=== PATIENT | female | born 2000 | race Caucasian/White ===

== ENCOUNTER 2021-08-28 14:05 | Emergency (ER) | payer OTHER ==
[~2021-08-28] VITALS: Ht 157.5 cm; Wt 89.5 kg
--- NOTE | 2021-08-28 15:29 | RAD ---
Exam: XR KNEE _4 VIEWS WITH PATELLA_LT History: Pain. Comparison: None. Findings: Osseous mineralization is normal. No acute fracture or dislocaton. No significant degenerative change s. Mild suprapatellar effusion. No focal soft tissue swelling. Impression: 1. Mild effusion without acute osseous abnormality of the left knee. Electronically signed by: Pino Jensen MD (08/28/2021 3:27 PM) [id number]
[2021-08-28] MEDS ORDERED: METH4TAB2 PO (15:59)
[2021-08-28] MEDS ORDERED: NAPR-514 PO (15:59)
[2021-08-28] MEDS ORDERED: HYDR-2761 PO (15:59)
--- NOTE | 2021-08-28 16:01 | PHYS DOC ---
Past Medical History Past Surgical History: No Surgical History General Adult EDM: Chief Complaint: LOWER EXT PAIN HPI: HPI: Patient is a 21 year old female who presents the ED today complaining of a sharp intermittent 10 out of 10 left knee pain, symptoms began today when she stepped on a stair case. Patient states the pain is worse on weightbearing. She has history of chronic osteoarthritis of the left knee. Reports the Nba wrap on the left knee relieves some of the pain. She states she has an appointment with a staff midwife in November. Review of Systems: Review of Systems: Constitutional: Denies fever or chills. [] Musculoskeletal: Reports left knee pain Integument: Denies rash. [] Neurologic: Denies headache, focal weakness or sensory changes. [] Psychiatric: Denies depression or anxiety. [] Heart Score: C/O Chest Pain: N/A Risk Factors: Risk Factors: DM, Current or recent (<one month) smoker, HTN, HLP, family history of CAD, obesity. Risk Scores: Score 0 - 3: 2.5% MACE over next 6 weeks - Discharge Home Score 4 - 6: 20.3% MACE over next 6 weeks - Admit for Clinical Observation Score 7 - 10: 72.7% MACE over next 6 weeks - Early Invasive Strategies Allergies: Allergies: Allergies Coded Allergies Type Severity Reaction Last Updated Verified No Known Drug Allergies 08/28/21 No Physical Exam: PE: Constitutional: Well developed, well nourished, no acute distress, non-toxic appearance. [] Skin: Warm, dry, no erythema, no rash. [] Back: No tenderness, no CVA tenderness. [] Extremities: Left knee with no obvious deformity, soft tissue swelling noted diffusely throughout the knee. Tenderness diffusely throughout the knee, full range of motion to the left knee, negative Karine sign, negative Jody sign, negative posterior anterior drawer sign. +2 left pedal pulse. Cap refill less than 2 seconds the left lower extremity. Sensation intact to the left lower extremity Neurologic: Alert and oriented X 3, normal motor function, normal sensory function, no focal deficits noted. [] Psychologic: Affect normal, judgement normal, mood normal. [] Current Patient Data: Vital Signs: Vital Signs Date Time Temp Pulse Resp B/P (MAP) Pulse Ox O2 Delivery O2 Flow Rate FiO2 08/28/21 14:05 98.5 90 18 112/67 (82) 98 Room Air 98.5 EKG: EKG: [] Radiology/Procedures: Radiology/Procedures: []PROCEDURE: KNEE LEFT 4V Exam: XR KNEE _4 VIEWS WITH PATELLA_LT History: Pain. Comparison: None. Findings: Osseous mineralization is normal. No acute fracture or dislocaton. No si gnificant degenerative changes. Mild suprapatellar effusion. No focal soft tissue swelling. Impression: 1. Mild effusion without acute osseous abnormality of the left knee. Electronically signed by: Pino Jensen MD (08/28/2021 3:27 PM) [id number] DICTATED and SIGNED BY: PINO JENSEN MD DATE: 08/28/21 [id number] 0 Course & Med Decision Making: Course & Med Decision Making Pertinent Labs and Imaging studies reviewed. (See chart for details) This a 21-year-old female patient presented to the ED today with left knee pain that began after stepping on a stair case. Left knee x-rays noted for mild effusion without acute osseous abnormality of the left knee. Nba bandage appli ed to the left knee by the ED RN, neurovascular exam done by the RN is normal. OTC pain relievers. Ice elevation encouraged. Provided Ortho for follow-up. She also has an appointment with a staff midwife in November. Janeen Disclaimer: Janeen Disclaimer: This electronic medical record was generated, in whole or in part, using a voice recognition dictation system. Departure Departure Impression: Primary Impression: Left knee pain Qualified Codes: M25.562 - Pain in left knee Additional Impression: Effusion of knee joint, left Disposition: HOME / SELF CARE / HOMELESS Condition: STABLE Referrals: NO PCP (PCP) RUPERT OSBORNE Jr. DO follow up in 2 weeks Patient Instructions: Knee Effusion, [id number], Knee Pain, [id number] Additional Instructions: You were seen for left knee pain, your left knee x-rays were negative for any acute findings, you have some fluid in the knee. Try and wrap it with an Nba bandage and keep it elevated. Take the prescribed medications as ordered. Please follow-up with your staff midwife as well as orthopedic doctor provided in the next 2 weeks Scripts Naproxen (NAPROXEN) 500 Mg Tablet 1 TAB PO BID for pain, #14 TAB 0 Refills Prov: MUTUNGA,DAISY M [employer]NAGER [employer] 08/28/21 Hydrocodone Bit/Acetaminophen (HYDROCODONE-APAP 5-325 ) 1 Tab Tablet 1 TAB PO PRN Q6HRS PRN for PAIN, #10 TAB 0 Refills Prov: DAISY COSTA APRN 08/28/21 Methylprednisolone (MEDROL) 4 Mg Tab.ds.pk 1 PKG PO UD, #1 PKG Prov: DAISY COSTA APRN 08/28/21 DAISY COSTA APRN Aug 28, 2021 16:01
[2021-08-28 16:25] VITALS: BP 122/72
== END 2021-08-28 16:25 | disposition home or self-care (01) ==
LOC: ER 14:05
DX: M25.562 Pain in left knee (principal); M17.12 Unilateral primary osteoarthritis, left knee
CPT/HCPCS: 73564; 99283; A6450